=== PATIENT | female | born 1985 | race Caucasian/White ===

== ENCOUNTER 2018-02-22 17:00 | Emergency (ER) | payer SELFPAY ==
[~2018-02-22] VITALS: Ht 175.2 cm; Wt 104.3 kg
== END 2018-02-22 18:50 | disposition home or self-care (01) ==
LOC: ED 17:00
DX: S93.402A Sprain of unspecified ligament of left ankle, initial encounter (principal); X58.XXXA Exposure to other specified factors, initial encounter; Y93.89 Activity, other specified; Y92.89 Other specified places as the place of occurrence of the external cause; Y99.8 Other external cause status

== ENCOUNTER 2018-04-16 04:09 | Inpatient (IN) | payer SELFPAY ==
[~2018-04-16] VITALS: Ht 170.1 cm; Wt 113.4 kg
--- NOTE | ~2018-04-16 | EKG ---
[place], [place] ELECTROCARDIOGRAM REPORT NAME: JAQUELINE GARCIA UNIT #: [id number] ROOM: 402 DOCTOR: EPIPHANY DRAFT REPORT BIRTHDATE: [birth year] [facility] Test Date: 2018-04-16 Test Time: 04:30:24 Pat Name: JAQUELINE GARCIA Department: Room: 402 Gender: F Senior Production Supervisor: : [id number] Requested By: OMER PETTIT Order Number: [id number] Reading MD: Domo Monk MD Measurements Intervals [place] Rate: 62 P: 42 PA: 168 QRS: 8 QRSD: 100 T: 16 QT: 429 QTc: 436 Interpretive Statements Sinus rhythm Electronically Signed On 04-16-2018 11:50:43 PST by Domo Monk MD CM:EKGRPT:ELECTROCARDIOGRAM REPORT 0430 1150 OMER PETTIT MD EPIPHANY DRAFT REPORT OMER PETTIT MD
[2018-04-16 04:23] VITALS: BP 118/61
[2018-04-16 04:55] LABS: BASO % 0.2 % (0.0-1.0); EOS % 0.1 % (1.0-4.0); HEMATOCRIT 37.6 % (37.0-47.0); HEMOGLOBIN 12.2 g/dl (12.0-16.0); LYMPH # 1.1 10*3/uL (1.3-4.4); LYMPH % 6.4 % (27.0-41.0); MEAN CORPUSCULAR HGB 27.9 pg (27.0-31.0); MEAN CORPUSCULAR HGB CONC 32.4 g/dl (33.0-37.0); MEAN PLATELET VOLUME 10.5 fl (9.6-12.3); MONO # 0.4 10*3/uL (0.1-1.0); MONO % 2.4 % (3.0-9.0); NEUT # 15.1 10*3/uL (2.3-7.9); NEUT % 90.6 % (47.0-73.0); PLATELET COUNT AUTOMATED 259 10*3/uL (130-400); RED BLOOD COUNT 4.37 10*6/uL (4.10-5.10); RED CELL DISTRI WIDTH 14.1 % (0-14.5); WHITE BLOOD COUNT 16.6 10*3/uL (4.8-10.8)
[2018-04-16 05:07] LABS: BILIRUBIN NEGATIVE (NEGATIVE); BLOOD TRACE-LYSED (NEGATIVE); CLARITY CLOUDY (CLEAR); COLOR YELLOW (YELLOW); GLUCOSE NEGATIVE (NEGATIVE); KETONE NEGATIVE (NEGATIVE); LEUKO ESTERASE NEGATIVE (NEGATIVE); NITRITE NEGATIVE (NEGATIVE); PH 5.5 (5.0-9.0); SPECIFIC GRAVITY >= 1.030 (1.005-1.030); UROBILINOGEN 0.2 E.U./dl (0.2-1.0)
[2018-04-16 05:11] LABS: ALBUMIN 3.7 gm/dl (3.1-4.5); ALKALINE PHOSPHATASE 76 U/L (45-117); BUN 13 mg/dl (7-24); CHLORIDE 105 mmol/L (98-107); CREATININE 0.96 mg/dL (0.55-1.02); LIPASE 135 U/L (73-393); POTASSIUM 3.8 mmol/L (3.5-5.1); SGOT/AST 23 IU/L (3-35); SGPT/ALT 23 U/L (12-78); SODIUM 141 mmol/L (136-145); TOTAL PROTEIN 7.9 gm/dL (6.4-8.2)
[2018-04-16 05:12] LABS: PLATELET SUFFICIENCY NORMAL (NORMAL); TOTAL CELLS COUNTED 100 #CELLS; TROPONIN I < 0.015 ng/ml (<0.045)
[2018-04-16 08:15] VITALS: BP 104/58
[2018-04-16 12:00] VITALS: BP 127/70
[2018-04-16 16:00] VITALS: BP 127/66
[2018-04-16 20:00] VITALS: BP 113/65
[2018-04-17] VITALS: BP 121/65
[2018-04-17 06:23] LABS: BASO % 0.5 % (0.0-1.0); EOS # 0.1 10*3/uL (0.0-0.4); EOS % 1.4 % (1.0-4.0); HEMATOCRIT 33.2 % (37.0-47.0); HEMOGLOBIN 10.5 g/dl (12.0-16.0); LYMPH # 2.9 10*3/uL (1.3-4.4); LYMPH % 36.4 % (27.0-41.0); MEAN CELL VOLUME 87.1 fl (81.0-99.0); MEAN CORPUSCULAR HGB 27.6 pg (27.0-31.0); MEAN CORPUSCULAR HGB CONC 31.6 g/dl (33.0-37.0); MEAN PLATELET VOLUME 11.3 fl (9.6-12.3); MONO # 0.4 10*3/uL (0.1-1.0); MONO % 4.6 % (3.0-9.0); NEUT # 4.5 10*3/uL (2.3-7.9); PLATELET COUNT AUTOMATED 215 10*3/uL (130-400); RED BLOOD COUNT 3.81 10*6/uL (4.10-5.10); RED CELL DISTRI WIDTH 14.5 % (0-14.5); WHITE BLOOD COUNT 7.9 10*3/uL (4.8-10.8)
[2018-04-17 06:33] LABS: ALBUMIN 3.1 gm/dl (3.1-4.5); BUN 14 mg/dl (7-24); CHLORIDE 108 mmol/L (98-107); CHOLESTEROL 139 mg/dL (<200); CREATININE 0.85 mg/dL (0.55-1.02); PHOSPHOROUS 2.8 mg/dL (2.5-4.9); POTASSIUM 3.6 mmol/L (3.5-5.1); SGOT/AST 15 IU/L (3-35); SGPT/ALT 23 U/L (12-78); SODIUM 142 mmol/L (136-145)
[2018-04-17 06:41] LABS: ALKALINE PHOSPHATASE 64 U/L (45-117); FREE T4 0.74 ng/dl (0.76-1.46); HDL CHOLESTEROL 43 mg/dl (40-60); LDL CHOLESTEROL 76 mg/dL (9-159); TOTAL PROTEIN 6.4 gm/dL (6.4-8.2); TRIGLYCERIDES 99 mg/dl (<150); VLDL CHOLESTEROL 20 mg/dL (6-40)
[2018-04-17 08:00] VITALS: BP 130/77
[2018-04-17 08:00] LABS: VITAMIN D, 25-HYDROXY 22.7 ng/mL (30-100)
[2018-04-17] MEDS ORDERED: ULTRAM50 MG PO (10:20)
[2018-04-17] MEDS ORDERED: ZOFRAN ODT4 MG SL (10:20)
[2018-04-17] MEDS ORDERED: AMOXICILLIN500 M2 PO (10:20)
== END 2018-04-17 11:50 | disposition home or self-care (01) | DRG 872 ==
LOC: ED 04:09 → EDHOLD 09:22 → 4E 09:22
PROVIDERS: Emergency Medicine Emergency Medical Services; Registered Nurse
DX: A41.9 Sepsis, unspecified organism (principal); A04.8 Other specified bacterial intestinal infections; J02.0 Streptococcal pharyngitis; K80.20 Calculus of gallbladder without cholecystitis without obstruction; R73.9 Hyperglycemia, unspecified; M41.9 Scoliosis, unspecified; Z82.5 Family history of asthma and other chronic lower respiratory diseases; Z88.8 Allergy status to other drugs, medicaments and biological substances